=== PATIENT | male | born 1975 | race Hispanic/Latino ===

== ENCOUNTER 2018-06-18 06:20 | Emergency (ER) | payer SELFPAY ==
[2018-06-18 06:51] LABS: #Basophils 0.1 thou/uL (0.0-0.2); #Eosinphils 0.6 thou/uL (0.0-0.7); #Lymphocytes 3.1 thou/uL (1.20-3.40); #Neutrophils 4.2 thou/uL (1.40-6.50); %Eosinophils 6.8 % (0.0-10.0); %Lymphocytes 34.6 % (21.0-51.0); %Monocytes 10.6 % (0.0-10.0); Hemoglobin 13.8 g/dL (14.0-18.0); Mean Corpuscular HGB CONC 32.8 g/dL (32.0-36.0); Mean Corpuscular Hemoglobin 29.1 pg (27.0-31.0); Mean Corpuscular Volume 88.7 fL (78.0-98.0); Platelet Count 268 thou/uL (130-400); RBC Distribution Width 12.3 % (11.5-14.5); Red Blood Cell (RBC) Count 4.75 mill/uL (4.70-6.10)
[2018-06-18 07:09] LABS: ALT (SGPT) 49 U/L (8-55); AST (SGOT) 22 U/L (5-34); Albumin 4.1 g/dL (3.5-5.0); Alkaline Phosphatase 93 U/L (40-150); Anion Gap 11 mmol/L (10-20); BUN (Urea Nitrogen) 12 mg/dL (8.9-20.6); Bilirubin, Total 0.5 mg/dL (0.2-1.2); Calc. Creatinine Clearance 0 mL/min (70-130); Calcium 9.2 mg/dL (7.8-10.44); Carbon Dioxide 24 mmol/L (22-29); Chloride 105 mmol/L (98-107); Estimated GFR-MDRD 82; Glucose 105 mg/dL (70-105); Potassium 3.8 mmol/L (3.5-5.1); Protein, Total 8.1 g/dL (6.0-8.3); Sodium 136 mmol/L (136-145)
[2018-06-18] MEDS ORDERED: Ketorolac Tromethamine 30 MG/ML VIAL ONE (07:15)
[2018-06-18 07:32] LABS: Bilirubin Negative (Negative); Blood, Urine Trace (Negative); Clarity CLEAR (Clear); Glucose, Urine (Dipstick) Negative (Negative); Leukocyte Negative (Negative); Nitrite Negative (Negative); Protein, Urine (Dipstick) Negative (Neg-Trace); Specific Gravity, Urine 1.019 (1.002-1.036); Urobilinogen 0.2 mg/dL (0.2-1.0); pH, Urine 5.5 (5.0-9.0)
[2018-06-18 07:34] LABS: Bacteria/HPF None Seen HPF (None Seen); Hyaline Casts/LPF 0-3 HYALINE CAST LPF (0-3 Hyaline); Pathc Cast-AUWi Flag 0.29 (0-2.49); RBC/HPF 0-3 HPF (0-3); Squamous Epithelial 0-3 HPF (0-3); WBC/HPF 0-3 HPF (0-3)
--- NOTE | 2018-06-18 08:30 | CT ---
CT ABDOMEN AND PELVIS WITHOUT IV CONTRAST: INDICATION: History of right-sided flank pain and history of nephrolithiasis. COMPARISON: CT of the chest, abdomen, and pelvis from [facility] dated 01/12/2015. FINDINGS: ABDOMEN: There is mild subsegmental atelectasis. There is stable fatty infiltration of the liver. The pancreas, adrenal gland, and spleen are unchanged and reveal no definite acute abnormality. There are numerous nonobstructing calculi involving both kidneys. One of the largest in the inferior pole of the right kidney measures 7 mm. The largest within the left kidney measures 9 mm within the left pelvis. There is prominence of a superior calyx of the right renal collecting system with a stone at the leve l of the papilla of the superior right renal calyx measuring 4.6 mm. This is new from the prior exam . No ureteral stone or hydronephrosis is evident. The bladder is decompressed. PELVIS: The rectum and perirectal soft tissues are unremarkable. The colon is largely decompressed. The sma ll bowel has a normal caliber. There is a normal appendix in the right lower quadrant. No drainable fluid collection is evident. No acute osseous abnormality is evident. IMPRESSION: 1. A 4.5 mm stone involving the outlet of the superior calyx of the right renal collecting system ca using mild dilatation of the superior calyx of the right renal collecting system. No ureteral stone or hydronephrosis is evident. 2. Bilateral nephrolithiasis. 3. Stable fatty liver. 4. Other chronic findings as above. POS: [facility]
== END 2018-06-18 08:13 | disposition home or self-care (01) ==
LOC: ERS 06:20
DX: N20.0 Calculus of kidney (principal)
CPT/HCPCS: 74176; 80053; 81003; 81015; 85025; 96361; 96374; J1885

== ENCOUNTER 2021-11-22 10:12 | Emergency (ER) | payer SELFPAY ==
[2021-11-22] MEDS ORDERED: Ketorolac Tromethamine 30 MG/ML VIAL ONE (10:29)
[2021-11-22] MEDS ORDERED: Diazepam 10 MG/2 ML SYRINGE ONE (10:29)
[2021-11-22] MEDS ORDERED: Morphine 4 MG/ML VIAL ONE (11:34)
== END 2021-11-22 13:25 | disposition home or self-care (01) ==
LOC: ERS 10:12
DX: M54.50 Low back pain, unspecified (principal)
CPT/HCPCS: 72100; 96372; 96374; J1885; J2270; J3360